=== PATIENT | female | born 1965 | race Caucasian/White ===

== ENCOUNTER 2022-09-17 14:45 | Outpatient (REF) | payer SELFPAY | END 2022-09-17 14:46 | disposition home or self-care (01) | LOC: HO.LNP 14:45 | PROVIDERS: Visit Provider Otolaryngology | DX: B37.9 Candidiasis, unspecified (principal); B96.89 Other specified bacterial agents as the cause of diseases classified elsewhere | CPT/HCPCS: 87070; 87102; 87205 ==